=== PATIENT | female | born 1960 | race Caucasian/White ===

== ENCOUNTER 2016-10-14 16:05 | Observation (INO) | payer OTHER ==
[2016-10-14 16:41] LABS: Hematocrit 40 % (35-47); Hemoglobin 13.4 g/dl (12.0-16.0); Mean Corpuscular HGB Conc 34 g/dl (31-36); Mean Corpuscular Hemoglobin 30 pg (27-31); Mean Corpuscular Volume 88 fL (80-97); Mean Platelet Volume 8 um3 (7.4-10.4); Red Cell Distribution Width 14 % (10.5-15); White Blood Count 6.1 10^3/ul (3.5-10.8)
[2016-10-14 16:55] LABS: Troponin I 0.01 ng/mL (<0.04)
[2016-10-14 16:56] LABS: Albumin 4.6 g/dL (3.2-5.2); BUN/Creatinine Ratio 24.7 (8-20); Calcium 9.9 mg/dL (8.6-10.3); EGFR African American 105.3 (>60); EGFR Non-African American 81.9 (>60); Globulin 3.8 g/dL (2-4); Potassium 3.5 mmol/L (3.5-5.0); Total Bilirubin 0.5 mg/dL (0.2-1.0); Total Protein 8.4 g/dL (6.4-8.9)
--- NOTE | 2016-10-14 17:14 | RAD ---
INDICATION: Irregular heartbeat COMPARISON: Chest x-ray dated October 03, 2006 TECHNIQUE: Single AP portable view of the chest was obtained. FINDINGS: Image quality is compromised due to the relative inferiority of a portable chest x-ray. The heart and mediastinum exhibit normal size and contour. The lungs are grossly clear. There is no evidence of a large pleural effusion. Visualized bones are normal for the patient's age. IMPRESSION: No radiographic evidence for acute cardiopulmonary abnormality on this portable chest x-ray.
[2016-10-14 17:20] LABS: Urine Bilirubin Negative (Negative); Urine Glucose Negative (Negative); Urine Nitrite Negative (Negative)
[2016-10-14 17:28] LABS: TSH (Thyroid Stimulating Horm) 1.96 mcIU/mL (0.34-5.60)
--- NOTE | 2016-10-14 18:29 | ED ---
Ramirez Pickens Benjamin, scribed for Seven Thornton MD on 10/14/16 at 1647 . Palpitations / Dysrhythmia - HPI Summary HPI Summary: 56yo female reporting feeling of brain foggy and buzziness in her head. Pt states that she is unable to focus, and feels lots of pressure in her head. Pt also reports intermittent palpitations and high BP all throughout Friday. Pt has hx of afib and states that her HR is sometimes really fast and at other times really sow. Pt is not on a bloodthinner. Denies CP or SOB. - History of Current Complaint Chief Complaint: EDGeneral Time Seen by Provider: 10/14/16 16:22 Hx Obtained From: Patient Onset/Duration: Gradual Onset, Lasting Days Severity Initially: Mild Severity Currently: Mild Character: Irregular Aggravating: Nothing Alleviating: Nothing Associated Signs & Symptoms: Dizzy - Allergy/Home Medications Allergies/Adverse Reactions: Allergies Allergy/AdvReac Type Severity Reaction Status Date / Time Iodine Allergy Hives Verified 10/04/15 10:17 Mineral Oil Allergy Rash Verified 10/02/15 12:21 PMH/Surg Hx/FS Hx/Imm Hx Endocrine/Hematology History: Reports: Hx Thyroid Disease Cardiovascular History: Reports: Hx Hypertension - Cancer History Hx Chemotherapy: No Hx Radiation Therapy: No - Surgical History Surgery Procedure, Year, and Place: x 1 - Immunization History Date of Tetanus Vaccine: w/in last 10 years Date of Influenza Vaccine: no Infectious Disease History: No Infectious Disease History: Denies: History Other Infectious Disease, Traveled Outside the [place] in Last 30 Days - Family History Known Family History: Positive: Hypertension, Other - vasovagal response Negative: Cardiac Disease - Social History Occupation: Employed Full-time Lives: With Family Alcohol Use: None Substance Use Type: Reports: None Smoking Status (MU): Never Smoked Tobacco Review of Systems Constitutional: Negative Eyes: Negative ENT: Negative Positive: Palpitations Respiratory: Negative Gastrointestinal: Negative Genitourinary: Negative Musculoskeletal: Negative Skin: Negative Neurological: Other Psychological: Normal All Other Systems Reviewed And Are Negative: Yes Physical Exam - Summary Physical Exam Summary: VITAL SIGNS: Reviewed. GENERAL: Patient is a well developed and nourished female who is lying comfortable in the stretcher. Patient is not in any acute respiratory distress. HEAD AND FACE: No signs of trauma. No ecchymosis, hematomas or skull depressions. No sinus tenderness. EYES: PERRLA, EOMI x 2, No injected conjunctiva, no nystagmus. EARS: Hearing grossly intact. Ear canals and tympanic membranes are within normal limits. MOUTH: Oropharynx within normal limits. NECK: Supple, trachea is midline, no adenopathy, no JVD, no carotid bruit, no c- spine tenderness, neck with full ROM. CHEST: Symmetric, no tenderness at palpation LUNGS: Clear to auscultation bilaterally. No wheezing or crackles. CVS: Regular rate and rhythm, S1 and S2 present, no murmurs or gallops appreciated. ABDOMEN: Soft, non-tender. No signs of distention. No rebound no guarding, and no masses palpated. Bowel sounds are normal. EXTREMITIES: FROM in all major joints, no edema, no cyanosis or clubbing. NEURO: Alert and oriented x 3. No acute neurological deficits. Speech is normal and follows commands. SKIN: Dry and warm Triage Information Reviewed: Yes Vital Signs On Initial Exam: Initial Vitals Temp Pulse Resp BP Pulse Ox 97.6 F 84 20 179/85 100 10/14/16 16:07 10/14/16 16:07 10/14/16 16:07 10/14/16 16:07 10/14/16 16:07 Vital Signs Reviewed: Yes - [place] Coma Scale Coma Scale Total: 15 Diagnostics - Vital Signs Vital Signs Temp Pulse Resp BP Pulse Ox 10/14/16 16:07 97.6 F 84 20 179/85 100 - Laboratory Lab Results: Lab Results 10/14/16 10/14/16 10/14/16 Range/Units 16:25 16:25 16:25 WBC 6.1 (3.5-10.8) 10^3/ul RBC 4.50 (4.0-5.4) 10^6/ul Hgb 13.4 (12.0-16.0) g/dl Hct 40 (35-47) % MCV 88 (80-97) fL MCH 30 (27-31) pg MCHC 34 (31-36) g/dl RDW 14 (10.5-15) % Plt Count 243 (150-450) 10^3/ul MPV 8 (7.4-10.4) um3 Neut % (Auto) 57.2 (38-83) % Lymph % (Auto) 36.4 (25-47) % [place] % (Auto) 5.5 (1-9) % Eos % (Auto) 0.4 (0-6) % Baso % (Auto) 0.5 (0-2) % Absolute Neuts (auto) 3.5 (1.5-7.7) 10^3/ul Absolute Lymphs (auto) 2.2 (1.0-4.8) 10^3/ul Absolute Monos (auto) 0.3 (0-0.8) 10^3/ul Absolute Eos (auto) 0 (0-0.6) 10^3/ul Absolute Basos (auto) 0 (0-0.2) 10^3/ul Absolute Nucleated RBC 0 10^3/ul Nucleated RBC % 0 Sodium 137 (133-145) mmol/L Potassium 3.5 (3.5-5.0) mmol/L Chloride 99 L (101-111) mmol/L Carbon Dioxide 28 (22-32) mmol/L Anion Gap 10 (2-11) mmol/L BUN 18 (6-24) mg/dL Creatinine 0.73 (0.51-0.95) mg/dL Est GFR ( Amer) 105.3 (>60) Est GFR (Non-Af Amer) 81.9 (>60) BUN/Creatinine Ratio 24.7 H (8-20) Glucose 95 (70-100) mg/dL Lactic Acid 1.4 (0.5-2.0) mmol/L Calcium 9.9 (8.6-10.3) mg/dL Magnesium 2.0 (1.9-2.7) mg/dL Total Bilirubin 0.50 (0.2-1.0) mg/dL AST 22 (13-39) U/L ALT 21 (7-52) U/L Alkaline Phosphatase 118 H (34-104) U/L Total Creatine Kinase 111 (10-223) U/L CK-MB (CK-2) 2.3 (0.6-6.3) ng/mL Troponin I 0.01 (<0.04) ng/mL B-Natriuretic Peptide ( - 100) pg/mL Total Protein 8.4 (6.4-8.9) g/dL Albumin 4.6 (3.2-5.2) g/dL Globulin 3.8 (2-4) g/dL Albumin/Globulin Ratio 1.2 (1-3) TSH 1.96 (0.34-5.60) mcIU/mL Urine Color Urine Appearance Urine pH (5-9) Ur Specific [place] (1.010-1.030) Urine Protein (Negative) Urine Ketones (Negative) Urine Blood (Negative) Urine Nitrate (Negative) Urine Bilirubin (Negative) Urine Urobilinogen (Negative) Ur Leukocyte Esterase (Negative) Urine Glucose (Negative) 10/14/16 10/14/16 Range/Units 16:25 17:13 WBC (3.5-10.8) 10^3/ul RBC (4.0-5.4) 10^6/ul Hgb (12.0-16.0) g/dl Hct (35-47) % MCV (80-97) fL MCH (27-31) pg MCHC (31-36) g/dl RDW (10.5-15) % Plt Count (150-450) 10^3/ul MPV (7.4-10.4) um3 Neut % (Auto) (38-83) % Lymph % (Auto) (25-47) % [place] % (Auto) (1-9) % Eos % (Auto) (0-6) % Baso % (Auto) (0-2) % Absolute Neuts (auto) (1.5-7.7) 10^3/ul Absolute Lymphs (auto) (1.0-4.8) 10^3/ul Absolute Monos (auto) (0-0.8) 10^3/ul Absolute Eos (auto) (0-0.6) 10^3/ul Absolute Basos (auto) (0-0.2) 10^3/ul Absolute Nucleated RBC 10^3/ul Nucleated RBC % Sodium (133-145) mmol/L Potassium (3.5-5.0) mmol/L Chloride (101-111) mmol/L Carbon Dioxide (22-32) mmol/L Anion Gap (2-11) mmol/L BUN (6-24) mg/dL Creatinine (0.51-0.95) mg/dL Est GFR ( Amer) (>60) Est GFR (Non-Af Amer) (>60) BUN/Creatinine Ratio (8-20) Glucose (70-100) mg/dL Lactic Acid (0.5-2.0) mmol/L Calcium (8.6-10.3) mg/dL Magnesium (1.9-2.7) mg/dL Total Bilirubin (0.2-1.0) mg/dL AST (13-39) U/L ALT (7-52) U/L Alkaline Phosphatase (34-104) U/L Total Creatine Kinase (10-223) U/L CK-MB (CK-2) (0.6-6.3) ng/mL Troponin I (<0.04) ng/mL B-Natriuretic Peptide 37 ( - 100) pg/mL Total Protein (6.4-8.9) g/dL Albumin (3.2-5.2) g/dL Globulin (2-4) g/dL Albumin/Globulin Ratio (1-3) TSH (0.34-5.60) mcIU/mL Urine Color Straw Urine Appearance Clear Urine pH 6.0 (5-9) Ur Specific [place] 1.003 L (1.010-1.030) Urine Protein Negative (Negative) Urine Ketones Negative (Negative) Urine Blood Negative (Negative) Urine Nitrate Negative (Negative) Urine Bilirubin Negative (Negative) Urine Urobilinogen Negative (Negative) Ur Leukocyte Esterase Negative (Negative) Urine Glucose Negative (Negative) Result Diagrams: 10/14/16 16:25 10/14/16 16:25 Lab Statement: Any lab studies that have been ordered have been reviewed, and results considered in the medical decision making process. - Radiology CXR Xray Interpretation: No Acute Changes Radiology Interpretation Completed By: Radiologist - EKG 1618. Cardiac Rate: NL - 66bpm EKG Rhythm: Sinus Rhythm ST Segment: Normal - no ST Elevation Re-Evaluation - Re-Evaluation First Eval Re-Evaluation Time: 18:13 Change: Improved - feeling a lot better Course/Dx - Course Assessment/Plan: 56yo female reporting feeling of brain foggy and buzziness in her head. Pt states that she is unable to focus, and feels lots of pressure in her head. Pt also reports intermittent palpitations and high BP all throughout Friday. Pt has hx of afib and states that her HR is sometimes really fast and at other times really sow. Pt is not on a bloodthinner. Denies CP or SOB. Bloodwork WNL. UA is negative for UTI. CXR NAD. EKG shows normal sinus rhythm with 66bpm without ST elevation. In ED course, pt has been completely asymptomatic. However due to near syncopal episode, pt case was discussed with Dr. Holloway for admission who accepted the pt. Pt is hemodynamically stable and A&Ox3. - Diagnoses Differential Diagnosis/HQI/PQRI: Positive: Hypokalemia, V-Tach, Other - Atrial fib, arrythmia Provider Diagnoses: Near syncope, Arrhythmia Discharge - Discharge Plan Condition: Stable Disposition: ADMITTED TO [facility] The documentation as recorded by the Ramirez eisenberg Benjamin accurately reflects the service I personally performed and the decisions made by , Seven Thonrton MD.
[2016-10-14] MEDS: Losartan TAB* 25 MG PO SCH (21:22)
--- NOTE | 2016-10-15 00:42 | HP ---
HISTORY AND PHYSICAL: DATE OF ADMISSION: 10/14/16 PROVIDER: Maris Olmos NP ATTENDING PHYSICIAN: Dr. Cross *(report dictated by Maris Olmos NP). PRIMARY CARE PROVIDER: Dr. Mejía. VISITING PROFESSOR: Dr. Lara. CHIEF COMPLAINT: Palpitations and presyncope. HISTORY OF PRESENT ILLNESS: Ms. Osullivan is a 56-year-old female with a past medical history of hypertension, hypothyroidism, brief episode of AFib with rvr in early thought to be secondary to dental infections that resolved after infection was treated, and history of vasovagal syncope starting around that same time, who presents to the emergency department today with complaint of several days of palpitations and feeling like she was going to pass out. Ms. Osullivan reports she went and saw her primary care physician, Dr. Mejía, was noted to have elevated blood pressures systolically in the 170s and due to her story of presyncope, palpitations in which the patient reports as "missed beats and drop in heart rate," the patient was referred to the emergency department for further evaluation. In the emergency department, the patient was noted to have unremarkable labs and an EKG showing sinus rhythm at a rate of 66 with no acute ischemia noted. No prior EKGs to compare to. Ms. Osullivan reports approximately on Friday, she noted that her blood pressure was systolically in the 170s to 180s and could not figure out why. She was out with her daughter that day, noted that she has palpitations and that her heart rate went from 60 to 57 and felt like she was going to pass out. On Friday, she also reports some brain fog and fuzziness. She then reports over the last couple of days, she was continued to feel palpitations and have a sensation that she might pass out. Patient reports her last true syncopal episode was probably a couple of years ago. She reports her triggers to be loss of sleep, stress, dehydration. Today, in the emergency department, the patient is alert and oriented x3. She denies any recent illnesses. No fevers, chills, nasal congestion, cough, shortness of breath, abdominal pain, nausea, vomiting, or diarrhea. She denies any palpitations or presyncopal sensation while being monitored in the emergency department. In regards to the patients noted hypertension she was very concerned about, the patient reports that Friday evening, she ate [place] food and then noted her blood pressure to be systolically in the 170s to 180s the next morning. She then reports it resolved, then today she noted elevated blood pressure systolically in the 170s, but admits to being "very stressed." PAST MEDICAL HISTORY: 1. Hypertension. 2. Atrial fibrillation in 1990 or 1991, which resolved and followed up with an EP study, which was negative. 3. Hypothyroidism. 4. History of vasovagal syncope. HOME MEDICATIONS: 1. Cozaar 50 mg p.o. b.i.d. 2. Synthroid odd days 25 mcg p.o. daily, even days 50 mcg p.o. daily. 3. Aspirin 81 mg p.o. daily. 4. Vitamin D + Calcium 1 tab PO daily 5. [place] 3 fish oil FAMILY HISTORY: Reviewed, noncontributory. SOCIAL HISTORY: Denies history of tobacco abuse. No alcohol use. Denies recreational drug use. The patient currently lives with her at home, who is her healthcare proxy and is Giuliano Osullivan, his number is [phone]. She has two grown daughters. REVIEW OF SYSTEMS: A 14-point review of systems was performed. All the pertinent positives and negatives are mentioned in the history of present illness. All the remaining systems are negative. PHYSICAL EXAMINATION GENERAL APPEARANCE: A healthy-appearing, 56-year-old female, sitting up in the emergency department stretcher. Alert and oriented x3, in no acute distress. VITAL SIGNS: Temperature 97.6, heart rate 53, respirations 16, O2 sat 98% on room air, blood pressure 134/63. HEENT: Head is normocephalic, atraumatic. Pupils are equal and reactive to light. Oropharynx is clear. Moist mucous membranes. Good dentition. NECK: Supple. No cervical or supraclavicular lymphadenopathy. RESPIRATORY: Clear to auscultation bilaterally. Good aeration throughout. No accessory muscle use. CARDIAC: S1, S2. Regular rate and rhythm. No murmurs, rubs, or gallops appreciated. No lower extremity edema noted. 2+ DP pulses bilaterally. ABDOMEN: Soft, nontender, nondistended. Normal bowel sounds x4. MUSCULOSKELETAL: No clubbing or cyanosis noted. Full range of motion in all extremities. Strength is 5/5 throughout. NEURO: Cranial nerves II through XII are grossly intact. Moves all extremities equally. Sensation to lower extremities is intact to light touch. PSYCH: Alert and oriented x3. Appropriate to situation. SKIN: No rashes, lesions, or open wounds noted. Warm, pink, and dry. DIAGNOSTIC STUDIES/LAB DATA: WBC is 6.1, RBC 4.50, Hgb 13.4, Hct 40, MCV 88, MCH 30, MCHC 34, RDW 14, platelet count 243. Sodium 137, potassium 3.5, chloride 99, carbon dioxide 28, anion gap 10, BUN 18, creatinine 0.73, glucose 95, lactic acid 1.4, calcium 9.9, magnesium 2.0. AST 22, ALT 21, alkaline phosphatase 118. Total creatine kinase 111, CK-MB 2.3. Troponin 0.01. BNP 37. Total protein 8.4, albumin 4.6. TSH 1.96. Urinalysis negative. EKG: Sinus rhythm with rate of 66 with no acute ischemic changes noted. No prior EKG to compare to. X-ray: No radiographic evidence for acute cardiopulmonary abnormality. ASSESSMENT AND PLAN: Ms. Osullivan is a 56-year-old female with past medical history of hypertension, hypothyroidism, distant history of atrial fibrillation , and history of vasovagal syncope, who presents to the emergency room today with report of palpitations and presyncopal sensation. 1. Presyncope. Unclear etiology at this time. Plan to admit the patient to telemetry on observation for further monitoring. The patient's heart rate currently is in the 50s and 60s in the emergency department with no noted arrhythmias or missed beats Transthoracic echocardiogram in the morning. Obtain orthostatic vital signs. At this time, plan to continue the patient on her home medications and have her ambulate on telemetry to see how she tolerates these. 2. Hypertension. Continue home dose Cozaar. I suspect her high blood pressure Friday morning was secondary to high salt content of [place] food and today's episode at the her primary's office secondary to stress. We will continue to monitor the patient's blood pressure on her home medication. 3. Hypothyroidism. Continue Synthroid. TSH within normal limits. 4. DVT prophylaxis. Low risk, encourage ambulation. 5. Code status. Full code. The patient's is her healthcare proxy. 6. Disposition. OBV to telemetry. TIME SPENT: Approximately 60 minutes was spent on this admission. MARIS OLMOS NP CC: Dr. Mejía * [id number]/[facility] #: [id number] MTDD
[2016-10-15 05:50] LABS: Hematocrit 36 % (35-47); Hemoglobin 11.9 g/dl (12.0-16.0); Mean Corpuscular HGB Conc 33 g/dl (31-36); Mean Corpuscular Hemoglobin 30 pg (27-31); Mean Corpuscular Volume 89 fL (80-97); Mean Platelet Volume 8 um3 (7.4-10.4); Red Blood Count 4.03 10^6/ul (4.0-5.4); Red Cell Distribution Width 14 % (10.5-15); White Blood Count 5.7 10^3/ul (3.5-10.8)
[2016-10-15] MEDS ORDERED: Levothyroxine TAB* 25 MCG TAB PO ONE (06:00)
[2016-10-15 06:06] LABS: BUN/Creatinine Ratio 28.2 (8-20); Calcium 9.4 mg/dL (8.6-10.3); EGFR African American 108.7 (>60); EGFR Non-African American 84.6 (>60); Potassium 4.1 mmol/L (3.5-5.0)
[2016-10-15] MEDS: Losartan TAB* 25 MG PO SCH (08:57)
--- NOTE | 2016-10-15 09:31 | PN ---
Subjective Date of Service: 10/15/16 Interval History: Patient had one episode this morning while sitting up in bed where she felt "a pause then like I was going pass out" she reports it only lasted a couple seconds then resolved. No CP, SOB or dizziness. Otherwise feeling well. Objective Active Medications: Losartan Potassium (Cozaar Tab*) 50 mg PO BID KISHORE Last Admin: 10/15/16 08:57 Dose: 50 mg Vital Signs 10/14/16 10/14/16 10/14/16 18:30 18:37 19:00 Temperature Pulse Rate 66 65 58 Respiratory 19 22 13 Rate Blood Pressure 134/63 137/62 (mmHg) O2 Sat by Pulse 93 97 97 Oximetry 10/15/16 10/15/16 10/15/16 00:08 00:19 00:24 Temperature 98.6 F 98.3 F 98.1 F Pulse Rate 56 53 58 Respiratory 18 20 16 Rate Blood Pressure 164/83 108/58 137/80 (mmHg) O2 Sat by Pulse 99 93 100 Oximetry 10/15/16 10/15/16 10/15/16 00:52 00:53 03:59 Temperature 98.3 F 97.9 F Pulse Rate 58 78 46 Respiratory 16 Rate Blood Pressure 137/80 135/90 129/62 (mmHg) O2 Sat by Pulse 95 Oximetry 10/15/16 10/15/16 08:34 08:38 Temperature 97.8 F 97.5 F Pulse Rate 68 61 Respiratory 18 18 Rate Blood Pressure 127/64 125/80 (mmHg) O2 Sat by Pulse 100 97 Oximetry Oxygen Devices in Use Now: None Appearance: healthy appearing 56 yo female sitting up in bed in NAD. A+O x3 Eyes: No Scleral Icterus, PERRLA Ears/Nose/Mouth/Throat: NL Teeth, Lips, Gums, Mucous Membranes Moist Neck: NL Appearance and Movements; NL JVP Respiratory: Symmetrical Chest Expansion and Respiratory Effort, Clear to Auscultation Cardiovascular: NL Sounds; No Murmurs; No JVD, RRR, No Edema Abdominal: NL Sounds; No Tenderness; No Distention Extremities: No Edema, No Clubbing, Cyanosis Skin: No Rash or Ulcers, No Nodules or Sclerosis Neurological: Alert and Oriented x 3, NL Sensation, NL Gait, NL Muscle Strength and Tone Lines/Tubes/Other Access: Clean, Dry and Intact Peripheral IV Nutrition: Taking PO's Result Diagrams: 10/15/16 05:00 10/15/16 05:00 Additional Lab and Data: Lab Results 10/14/16 10/14/16 10/14/16 Range/Units 16:25 16:25 16:25 WBC 6.1 (3.5-10.8) 10^3/ul RBC 4.50 (4.0-5.4) 10^6/ul Hgb 13.4 (12.0-16.0) g/dl Hct 40 (35-47) % MCV 88 (80-97) fL MCH 30 (27-31) pg MCHC 34 (31-36) g/dl RDW 14 (10.5-15) % Plt Count 243 (150-450) 10^3/ul MPV 8 (7.4-10.4) um3 Neut % (Auto) 57.2 (38-83) % Lymph % (Auto) 36.4 (25-47) % [place] % (Auto) 5.5 (1-9) % Eos % (Auto) 0.4 (0-6) % Baso % (Auto) 0.5 (0-2) % Absolute Neuts (auto) 3.5 (1.5-7.7) 10^3/ul Absolute Lymphs (auto) 2.2 (1.0-4.8) 10^3/ul Absolute Monos (auto) 0.3 (0-0.8) 10^3/ul Absolute Eos (auto) 0 (0-0.6) 10^3/ul Absolute Basos (auto) 0 (0-0.2) 10^3/ul Absolute Nucleated RBC 0 10^3/ul Nucleated RBC % 0 Sodium 137 (133-145) mmol/L Potassium 3.5 (3.5-5.0) mmol/L Chloride 99 L (101-111) mmol/L Carbon Dioxide 28 (22-32) mmol/L Anion Gap 10 (2-11) mmol/L BUN 18 (6-24) mg/dL Creatinine 0.73 (0.51-0.95) mg/dL Est GFR ( Amer) 105.3 (>60) Est GFR (Non-Af Amer) 81.9 (>60) BUN/Creatinine Ratio 24.7 H (8-20) Glucose 95 (70-100) mg/dL Lactic Acid 1.4 (0.5-2.0) mmol/L Calcium 9.9 (8.6-10.3) mg/dL Magnesium 2.0 (1.9-2.7) mg/dL Total Bilirubin 0.50 (0.2-1.0) mg/dL AST 22 (13-39) U/L ALT 21 (7-52) U/L Alkaline Phosphatase 118 H (34-104) U/L Total Creatine Kinase 111 (10-223) U/L CK-MB (CK-2) 2.3 (0.6-6.3) ng/mL Troponin I 0.01 (<0.04) ng/mL B-Natriuretic Peptide ( - 100) pg/mL Total Protein 8.4 (6.4-8.9) g/dL Albumin 4.6 (3.2-5.2) g/dL Globulin 3.8 (2-4) g/dL Albumin/Globulin Ratio 1.2 (1-3) TSH 1.96 (0.34-5.60) mcIU/mL Urine Color Urine Appearance Urine pH (5-9) Ur Specific [place] (1.010-1.030) Urine Protein (Negative) Urine Ketones (Negative) Urine Blood (Negative) Urine Nitrate (Negative) Urine Bilirubin (Negative) Urine Urobilinogen (Negative) Ur Leukocyte Esterase (Negative) Urine Glucose (Negative) 10/14/16 10/14/16 Range/Units 16:25 17:13 WBC (3.5-10.8) 10^3/ul RBC (4.0-5.4) 10^6/ul Hgb (12.0-16.0) g/dl Hct (35-47) % MCV (80-97) fL MCH (27-31) pg MCHC (31-36) g/dl RDW (10.5-15) % Plt Count (150-450) 10^3/ul MPV (7.4-10.4) um3 Neut % (Auto) (38-83) % Lymph % (Auto) (25-47) % [place] % (Auto) (1-9) % Eos % (Auto) (0-6) % Baso % (Auto) (0-2) % Absolute Neuts (auto) (1.5-7.7) 10^3/ul Absolute Lymphs (auto) (1.0-4.8) 10^3/ul Absolute Monos (auto) (0-0.8) 10^3/ul Absolute Eos (auto) (0-0.6) 10^3/ul Absolute Basos (auto) (0-0.2) 10^3/ul Absolute Nucleated RBC 10^3/ul Nucleated RBC % Sodium (133-145) mmol/L Potassium (3.5-5.0) mmol/L Chloride (101-111) mmol/L Carbon Dioxide (22-32) mmol/L Anion Gap (2-11) mmol/L BUN (6-24) mg/dL Creatinine (0.51-0.95) mg/dL Est GFR ( Amer) (>60) Est GFR (Non-Af Amer) (>60) BUN/Creatinine Ratio (8-20) Glucose (70-100) mg/dL Lactic Acid (0.5-2.0) mmol/L Calcium (8.6-10.3) mg/dL Magnesium (1.9-2.7) mg/dL Total Bilirubin (0.2-1.0) mg/dL AST (13-39) U/L ALT (7-52) U/L Alkaline Phosphatase (34-104) U/L Total Creatine Kinase (10-223) U/L CK-MB (CK-2) (0.6-6.3) ng/mL Troponin I (<0.04) ng/mL B-Natriuretic Peptide 37 ( - 100) pg/mL Total Protein (6.4-8.9) g/dL Albumin (3.2-5.2) g/dL Globulin (2-4) g/dL Albumin/Globulin Ratio (1-3) TSH (0.34-5.60) mcIU/mL Urine Color Straw Urine Appearance Clear Urine pH 6.0 (5-9) Ur Specific [place] 1.003 L (1.010-1.030) Urine Protein Negative (Negative) Urine Ketones Negative (Negative) Urine Blood Negative (Negative) Urine Nitrate Negative (Negative) Urine Bilirubin Negative (Negative) Urine Urobilinogen Negative (Negative) Ur Leukocyte Esterase Negative (Negative) Urine Glucose Negative (Negative) Assess/Plan/Problems-Billing Assessment: Mrs. Osullivan is a 56 yo female with a PMH of distant afib with rvr, vasovagal syncope, HTN and hypothyroidism who presented with c/o presyncope and "missed heart beats". - Patient Problems (1) Pre-syncope Comment: - noted to have missed beats on tele (about 6-7 overnight) causing about a two second pause, she was symptomatic to one episode this morning that correlated to a pause - Dr Gould to consult. Check lyme titer. Plan to place event monitor today. TTE. follow up next week with Dr. Lara (2) HTN (hypertension) Comment: - controlled on home medication - continue cozzar (3) Hypothyroid Comment: TSH wnls continue home dose synthroid (4) DVT prophylaxis Comment: low risk. encourage ambulation (5) Full code status Current Visit: Yes Status: Acute Code(s): Z78.9 - OTHER SPECIFIED HEALTH STATUS SNOMED Code(s): 622458042 Status and Disposition: OBV. DC to home after event monitor is placed with f/u Dr. Lara next week.
[2016-10-15] MEDS ORDERED: Acetaminophen TAB* 325 MG PO PRN (12:12)
--- NOTE | 2016-10-15 12:52 | ECHO ---
Patient: JACQUES ARDON [facility] Rec#: [id number] : 1960 Date: 10/15/2016 Age: 56y Height: 167.64 cm / 66.0 in Weight: 68.49 kg / 151.0 lbs Sex: F BSA: 1.77 Room#: 439 Admit Date#: 10/14/2016 Type: Inpatient Referring: Maris Londono Reading: Edwin Madrigal MD Pole Lift Operator: Marianne Gaston TRISTEN CC: Traci Mejía MD Transthoracic Echocardiogram Indication: Syncope BP: 129/62 HR: 59 Rhythm: Bradycardia Findings History: HTN,hypothyroidism,vasa-vagal syncope in the past. Technical Comments: The study quality is good. Completed at 1220. Left Ventricle: The left ventricular chamber size is decreased. Global left ventricular wall motion and contractility are within normal limits. There is normal left ventricular systolic function. The estimated ejection fraction is 55-60%. Normal left ventricular diastolic filling is observed. Left Atrium: The left atrial chamber size is normal. Right Ventricle: The right ventricular cavity size is normal. The right ventricular global systolic function is normal. Right Atrium: The right atrial cavity size is normal. Aortic Valve: The aortic valve is trileaflet. There is no evidence of aortic regurgitation. There is no evidence of aortic stenosis. Mitral Valve: The mitral valve leaflets appear normal. There is no evidence of mitral regurgitation. There is no evidence of mitral stenosis. Tricuspid Valve: The tricuspid valve leaflets are normal. There is no evidence of tricuspid valve regurgitation. There is no tricuspid stenosis. Pulmonic Valve: The pulmonic valve appears normal. There is no evidence of pulmonic regurgitation. There is no pulmonic stenosis. Pericardium: The pericardium appears normal. Aorta: There is no dilatation of the ascending aorta. There is no dilatation of the aortic arch. There is no dilation of the aortic root. Pulmonary Artery: The main pulmonary artery appears normal. Venous: The inferior vena cava appears normal in size. There is a greater than 50% respiratory change in the inferior vena cava dimension. Conclusions Global left ventricular wall motion and contractility are within normal limits. The estimated ejection fraction is 55-60%. Normal left ventricular diastolic filling is observed. No valvular disease noted. Compared to the report of prior study from 08/31/2014 the trace mitral regurgitation and mild tricuspid regurgitation seen on the prior study is not noted on the current one. Measurements Name Value Normal Range RVIDd (AP) 2D 2.6 cm (0.9 - 2.6) RVDdMajor (2D) 2.8 cm (2.2 - 4.4) RAd ISD 4CH 4 cm (3.4 - 4.9) RA (A4C)W 2.5 cm (2.9 - 4.6) IVSd (2D) 0.9 cm (0.6 - 1) LVPWd (2D) 0.7 cm (0.6 - 1) LVIDd (2D) 3.5 cm (3.6 - 5.4) LVIDs (2D) 2.5 cm - LV FS (2D) 30 % (25 - 45) Aortic Annulus 1.6 cm (1.4 - 2.6) Ao root diameter (2D) 3.5 cm (2.1 - 3.5) Ascending Ao 3.2 cm (2.1 - 3.4) Aortic arch 1.9 cm (1.8 - 3.4) Descending Ao 0.8 cm - LA dimension (AP) 2D 2.9 cm (2.3 - 3.8) LAd ISD 4CH 3.9 cm (2.9 - 5.3) LA ISD 4CH W 3.8 cm (2.5 - 4.5) Name Value Normal Range LA ESV SP 4CH (A/L) 44 ml - LA ESV SP 2CH (A/L) 33 ml - LA ESV BP (A/L) 39 ml - LA ESV BP (A/L) index 21.72 ml/m2 - LA ESV SP 4CH (MOD) 38 ml - LA ESV SP 2CH (MOD) 31 ml - Name Value Normal Range MV E-wave Vmax 1.1 m/sec - MV deceleration time 205 msec - MV A-wave Vmax 0.9 m/sec - MV E:A ratio 1.11 ratio - LV septal e' Vmax 0.09 m/sec - LV lateral e' Vmax 0.11 m/sec - LV E:e' septal ratio 12.22 ratio - LV E:e' lateral ratio 10 ratio - Name Value Normal Range AV Vmax 1.6 m/sec - AV VTI 31.9 cm - AV peak gradient 10.26 mmHg - AV mean gradient 4.74 mmHg - LVOT Vmax 1.4 m/sec - LVOT VTI 30 cm - LVOT peak gradient 8.22 mmHg - LVOT mean gradient 3.21 mmHg - Name Value Normal Range IVC diameter 1.6 cm - Name Value Normal Range PV Vmax 1.1 m/sec - PV peak gradient 4.44 mmHg -
[2016-10-15] MEDS ORDERED: Cephalexin CAP* 500 MG PO ONE (14:30)
[2016-10-15] MEDS ORDERED: Lidocaine 1% INJ* 10 MG/ML 30 ML SDV ONE (14:40)
[2016-10-15 14:59] VITALS: BP 139/79
--- NOTE | 2016-10-15 16:21 | CONS ---
CARDIOLOGY CONSULTATION: DATE OF CONSULT: 10/15/16 INDICATION FOR CONSULTATION: Near syncope, hypertension. HISTORY OF PRESENT ILLNESS: The patient is a 56-year-old female with a distant history of atrial fibrillation, who came to the emergency room because of elevated blood pressure and episodes of near syncope. The patient states that over the last couple of months, she has had a few episodes where she has felt like she was going to pass out, but did not actually pass out. The patient does have a history of neurocardiogenic syncope. She has had electrophysiology testing in the past. The patient states that she has noticed that her blood pressure was elevated for the past day or so. She did call Dr. Lara's office and was scheduled for an office visit. However, she had a couple of episodes of near syncope and decided to come to the emergency room. On arrival to the emergency room, her laboratory studies were unremarkable and her EKG was unremarkable, and she was admitted overnight for observation. Overnight, she had a few episodes of feeling lightheaded, but did not have any true syncopal episodes. Her green chain operator shows episodes of normal sinus rhythm at 58 beats per minute with episodes of non-conducted P-waves. These P-waves do not fall as early premature atrial contractions and there is no evidence of VA prolongation or VA shortening after the dropped beat. This looks consistent with second-degree heart block type 2. PAST MEDICAL HISTORY: Significant for hypertension, neurocardiogenic syncope. PAST SURGICAL HISTORY: None. OUTPATIENT MEDICATIONS: 1. Cozaar 50 mg a day. 2. Vitamin D. 3. Vitamin C. ALLERGIES: She is intolerant of INDERAL. SOCIAL HISTORY: She is . She has 1 daughter. She denies tobacco or alcohol use. She drinks 1 cup of coffee a day. Rare exercise. REVIEW OF SYSTEMS: Negative for fevers or chills. Negative for changes in bowel or bladder habit. Negative for weight change. PHYSICAL EXAM: Height is 5 feet 6 inches, weight is 151 pounds. Blood pressure of 127/64, temperature 97.8 degrees Fahrenheit, heart rate is 68, oxygen saturation 97% on room air. Sclerae anicteric. Oropharynx is pink without erythema. Carotids are 2+ without bruits. JVD is normal. Thyroid is normal. Cardiac Exam: S1, S2 without any murmurs, rubs or gallops. Lungs are clear to auscultation bilaterally. There is no dullness to percussion. Abdomen is soft, nontender, nondistended with normoactive bowel sounds. Extremities show no edema. She has 2+ pulses throughout. The patient is awake , alert, and oriented. She moves all 4 extremities equally. DIAGNOSTIC STUDIES/LAB DATA: CBC within normal limits. Chemistry is within normal limits. TSH 1.96. Lyme titers are pending. Baseline EKG demonstrates normal sinus rhythm with normal axis intervals. The patient did have an echocardiogram in August 2014, which demonstrated normal LV size and systolic function. No significant valvular abnormalities. IMPRESSION: This is a 56-year-old female who came to the hospital because of episodes of near syncope and hypertension. The patient's history of hypertension is longstanding. The patient is on Cozaar. At this point, I am not going to make any medication changes. That can be arranged as an outpatient. The patient does have these episodes of near syncope. She does have documented dropped P-waves that are consistent with second-degree heart block type 2. For now, my recommendation is to evaluate Lyme titers. The patient will be scheduled for an event monitor implantation, so that we can monitor her heart rate at home. The patient will follow up with Dr. Lara. The patient may benefit from an electrophysiology testing to evaluate her AV node conduction. At this point, I do not think any other medication changes are necessary. CC: Lali Lara MD; Traci Mejía MD* [id number]/[facility] #: [id number] MTDD
--- NOTE | 2016-10-15 23:27 | CARD ---
CC: Dr. Mejía; Dr. Lara EVENT MONITOR IMPLANTATION REPORT: DATE OF PROCEDURE: 10/15/16 PROCEDURE: Event monitor implantation. INDICATION: Near syncope, second degree heart block. The patient is a 56-year-old female with a history of neurocardiogenic syncope [facility]. On telemetry, she had evidence of second degree heart b lock type 2, she had nonconducting P-waves. Event monitor implantation was recommended for long-ter m arrhythmia monitoring. DESCRIPTION OF PROCEDURE: The patient was brought to the procedure room. Her anterior chest was pr epped and draped in the usual fashion. 1% lidocaine was used for local anesthesia. The patient rec eived 500 mg of Keflex before the procedure. A small incision was made with the implantation tool, a n event monitor was injected subcutaneously. The event monitor is a [employer] Reveal LINQ serial #[id number]. It had an R-wave sensitivity of 0.53 millivolts. The patient tolerated the procedure wel l with no complications. [id number]/[facility] #: [id number]
--- NOTE | 2016-10-16 02:32 | DS ---
DISCHARGE SUMMARY: DATE OF ADMISSION: 10/14/16 DATE OF DISCHARGE: 10/15/16 PROVIDER: Lisa Olmos NP ATTENDING PHYSICIAN: Dr. Manzano* (report dictated by Lisa Olmos NP). PRIMARY CARE PROVIDER: Dr. Mejía. CHEMIST STEROIDS: Dr. Lara. PRIMARY DIAGNOSIS: Presyncope with noted arrhythmia on the monitor showing 2- second pauses. SECONDARY DIAGNOSES: 1. Hypertension. 2. Distant history of atrial fibrillation in early , which resolved and was followed with the EP study, which was negative. 3. Hypothyroidism. 4. History of vasovagal syncope. HOME MEDICATIONS: 1. Cozaar 50 mg p.o. b.i.d. 2. Synthroid odd days 25 mcg p.o. every other day, even days 50 mcg p.o. every other day. 3. Aspirin 81 mg p.o. daily. 4. Vitamin D plus calcium 1 tab p.o. daily. 5. [place]odi 3 fish oil 1 tab p.o. daily. HISTORY OF PRESENT ILLNESS AND HOSPITAL COURSE: Please see history and physical by this provider for full admission details. SUMMARY: This is a 56-year-old female who presented to emergency department with complaint of palpitations and presyncopal sensation. She reports over the course of the past 3 days, she has had intermittent sensation like she was going to pass out with noted palpitations or as she described "missed beats and a drop in heart rate." She reports that she has had this intermittently throughout the years, but has become more frequent in the last 3 days. In the emergency department, the patient is noted to have an EKG showing normal sinus rhythm with a rate of 66. She was admitted to the hospitalist service and monitored on telemetry where she was identified to have 6 or 7 of pauses about 2 seconds showing a dropped beat. The patient was asymptomatic. To most of these except one this morning when she was sitting up in the bed reading a book , she all of a sudden felt like she was going to pass out, noted "missed heart beat" and that resolved and she felt back to her normal baseline. She remained hemodynamically stable. Her orthostatics were obtained, which were negative. The patient was seen in consultation by supervisor records change, Dr. Gould, who reviewed the patient's cardiac strips and determined that the patient would benefit from a placement of an event monitor. The patient follows with Dr. Lara as an outpatient and will follow up next week in her office. The patient has ambulated around the unit without difficulty and has had no further symptoms except the one episode this morning. She is safe for discharged to home. She underwent a transthoracic echocardiogram, which showed impression "global left ventricular wall motion contractility within normal limits." The estimated ejection fraction is 55% to 60%. Normal left ventricular diastolic filling is observed. No valvular disease. Compared to the report of prior study from 08/11/14, the trace mitral regurgitation, mild tricuspid regurgitation seen on the prior study is not noted on the current one." DISCHARGE PLAN: 1. The patient is instructed to call Dr. Lara's office tomorrow for a followup appointment next week for event monitor placement insertion site check. 2. Follow up with Dr. Green within 3 to 5 days. 3. The patient was instructed if she has any worsening symptoms to return to the emergency department. TIME SPENT: Approximately 45 minutes were spent on this discharge. LISA OLMOS NP CC: Dr. Mejía; Dr. Lara* [id number]/[facility] #: [id number] MARCUS
== END 2016-10-15 15:30 | disposition home or self-care (01) ==
LOC: ED 16:05 → MEDTELE 18:02
PROVIDERS: ADMIT Internal Medicine; ATTEND Internal Medicine
DX: R55 Syncope and collapse (principal); I49.9 Cardiac arrhythmia, unspecified; I10 Essential (primary) hypertension; E03.9 Hypothyroidism, unspecified; I51.7 Cardiomegaly; I44.1 Atrioventricular block, second degree; Z79.82 Long term (current) use of aspirin; Z79.899 Other long term (current) drug therapy; Z88.8 Allergy status to other drugs, medicaments and biological substances
CPT/HCPCS: 33282; 36415; 71010; 80048; 80053; 81003; 82550; 82553; 83605; 83735; 83880; 84443; 84484; 85025; 86618; 93005; 93306; 99283; A9270-GY; C1764; G0378; J2001

== ENCOUNTER 2016-12-19 08:02 | Observation (INO) | payer OTHER ==
[2016-12-19] MEDS ORDERED: ceFAZolin 2 GM PREMIX(*) 2 GM/50 ML BAG IVPB ONE (08:30)
[2016-12-19 08:39] LABS: Hematocrit 38 % (35-47); Hemoglobin 12.3 g/dl (12.0-16.0); Mean Corpuscular HGB Conc 33 g/dl (31-36); Mean Corpuscular Hemoglobin 29 pg (27-31); Mean Corpuscular Volume 88 fL (80-97); Mean Platelet Volume 8 um3 (7.4-10.4); Red Blood Count 4.26 10^6/ul (4.0-5.4); Red Cell Distribution Width 14 % (10.5-15); White Blood Count 7.1 10^3/ul (3.5-10.8)
[2016-12-19 08:52] LABS: BUN/Creatinine Ratio 25.7 (8-20); Calcium 9.2 mg/dL (8.6-10.3); EGFR African American 103.7 (>60); EGFR Non-African American 80.6 (>60); Potassium 3.9 mmol/L (3.5-5.0)
[2016-12-19] MEDS ORDERED: diPHENhydraMINE IV* 50 MG in NS 0.9% 50 ML* 50 ML IVPB ONE (09:26)
[2016-12-19] MEDS ORDERED: diPHENhydraMINE IV* 50 MG/ML 1 ml VIAL (BENADRYL) ONE (09:33)
[2016-12-19] MEDS ORDERED: Lidocaine 1% INJ* 10 MG/ML 30 ML SDV ONE (09:45)
[2016-12-19] MEDS ORDERED: Iohexol 300 (CONTRAST) 10 ML SDV ONE (09:45)
[2016-12-19] MEDS ORDERED: Midazolam* 1 MG/ML 5 ML VIAL (5 MG) ONE (09:45)
[2016-12-19] MEDS ORDERED: fentaNYL* 50 MCG/ML 2 ML VIAL (100 MCG VIAL) ONE (09:45)
[2016-12-19] MEDS ORDERED: oxyCODONE/Acetamin 5/325 MG* TAB PO PRN (11:32)
--- NOTE | 2016-12-19 14:49 | RAD ---
INDICATION: Status post pacemaker placement. COMPARISON: Comparison is made with a prior study from October 14, 2016. TECHNIQUE: A portable view of the chest was obtained. FINDINGS: There is a dual-chamber transvenous pacemaker present. The heart is within normal limits in size. The lungs are clear. No pleural effusion or pneumothorax is seen. IMPRESSION: STATUS POST PACEMAKER PLACEMENT, NO EVIDENCE FOR ACUTE FINDING.
[2016-12-19] MEDS: Acetaminophen TAB* 325 MG PO PRN ×2 (15:35→20:06)
[2016-12-19] MEDS: ceFAZolin 500 MG VIAL(*) 500 MG in NS 0.9% 50 ML* 50 ML IVPB SCH ×2 (16:09→22:57)
[2016-12-19] MEDS: Gabapentin CAP(*) 100 MG PO SCH ×2 (16:09→20:04)
[2016-12-19] MEDS: Losartan TAB* 25 MG PO SCH (20:06)
[2016-12-20] MEDS ORDERED: Levothyroxine TAB* 25 MCG TAB PO SCH (06:00)
[2016-12-20 06:47] LABS: EGFR African American 110.5 (>60); EGFR Non-African American 85.9 (>60); Magnesium 1.9 mg/dL (1.9-2.7)
[2016-12-20 07:24] VITALS: BP 128/73
[2016-12-20] MEDS: Gabapentin CAP(*) 100 MG PO SCH (07:31)
[2016-12-20] MEDS: ceFAZolin 500 MG VIAL(*) 500 MG in NS 0.9% 50 ML* 50 ML IVPB SCH (07:32)
[2016-12-20] MEDS: Losartan TAB* 25 MG PO SCH (08:26)
[2016-12-20] MEDS: Acetaminophen TAB* 325 MG PO PRN (08:48)
--- NOTE | 2016-12-20 09:24 | RAD ---
INDICATION: Device implant COMPARISON: December 19, 2016 TECHNIQUE: PA and lateral dual-energy views were obtained. FINDINGS: Bones/Soft Tissues: There are no acute bony findings. There is recent left-sided pacemaker pacemaker Cardiomediastinal: The cardiomediastinal silhouette is normal. There is no vascular congestion. Lungs: There are no infiltrates. There is no pneumothorax. Pleura: There are no pleural effusions. Other: None IMPRESSION: RECENT PACEMAKER INSERTION. NO PNEUMOTHORAX. LUNGS CLEAR.
--- NOTE | 2016-12-20 09:39 | DS ---
DISCHARGE SUMMARY: DATE OF ADMISSION: 12/19/16 DATE OF DISCHARGE: 12/20/16 HISTORY OF PRESENT ILLNESS: Ana Osullivan is a 56-year-old woman with syncopal episodes; in the past she was treated for neurocardiogenic syncope with metoprolol. Relatively recently, this had to be stopped because of symptomatic bradycardia. And she had an event monitor put in recently to evaluate for possible dysrhythmias related to syncope. Her LINQ implantable event monitor revealed second-degree heart block type 1 followed by SVT when she was symptomatic. But, then on December 09, she developed 8 seconds of complete heart block associated with her symptoms of near syncope and the sensation that something was very wrong; it's always transient. The patient was admitted for elective dual-chamber pacemaker implantation. The patient had an MRI-compatible Medtronic device implanted yesterday, 12/19/16 , without complications. Overnight, the patient felt well. She did have some palpitations; and, on the monitor, there was initial concern about ventricular tachycardia with sleep. However, by my personal review, it is supraventricular tachycardia being tracked with ventricular pacing. The patient denies fevers, chills, or shortness of breath. She has only minimal tenderness at the site. PAST MEDICAL HISTORY: The patient has a past medical history of neurocardiogenic syncope, third-degree heart block as above, supraventricular tachycardia, hypertension, dyslipidemia. ALLERGIES: Include AMLODIPINE, IODINE, MINERAL OIL, PROPRANOLOL. OUTPATIENT MEDICATIONS: Include: 1. Levothyroxine 25 mcg a day. 2. Calcium and vitamin D3. 3. Neurontin p.r.n. 4. Flax seed oil. 5. Cozaar 50 mg b.i.d. 6. Multi-Will. HOSPITAL COURSE: The patient underwent implantation as above without complications. Brief episodes of supraventricular tachycardia with ventricular tracking. She is ambulating well. PHYSICAL EXAMINATION: On exam, the patient is 5 feet 4 inches, weight is 149 pounds with a BMI of 26. Blood pressure this morning 128/73, pulse 60, respiratory rate 16. She is afebrile. General Appearance: Older middle-aged woman in no acute distress, smiling, upbeat. HEENT: Mucous membranes moist. Neck: Without increased JVP. Lungs are clear with good effort. No wheezes, rales, or rhonchi. Coronary: S1, S2. Regular without murmurs or rubs. Incision in the left subclavian fossa appears free of infection, hematoma, or ecchymosis. Nominal site tenderness. Abdomen: Soft and nontender. Lower Extremities: Free of edema and warm. The upper extremities are symmetrical and without edema. IMAGING: Chest x-ray shows good lead placement, and no pneumothorax yesterday and today. Pacemaker interrogation today confirms she has a [employer]onic MRI-compatible Advisa DR. This morning, her atrial sensing was 1.4 millivolts with an atrial lead impedance of 399 ohms and and atrial paced rhythm of 0.75 volts at 0.4 milliseconds. R-waves are sensed at 5.5 millivolts with a lead impedance of 1216 ohms and a ventricular pacing threshold of 1.25 volts at 0.4 milliseconds. The ventricular pacing threshold is slightly increased compared with implant. LABORATORY DATA: White count 7.1, hemoglobin 12.3, platelets 198. INR 1.06, PTT 32.1. Labs today - sodium 138, potassium 4.0, chloride 104, bicarb 26, BUN 14, creatinine 0.7, magnesium 1.9. SUMMARY: In summary, Ana Osullivan is a 56-year-old woman with syncopal and near - syncopal episodes that have escalated recently and a history of autonomic dysfunction with evidence of 8 seconds of third-degree heart block. She is now postop day #1 dual-chamber pacemaker implantation. She had some SVT overnight. I am going to add her metoprolol back at low dose 25 mg. Additionally, she will go home with Keflex 500 mg t.i.d. for 4 days, and she will be discharged additionally with her home medications as above. The patient will follow up in our office in one week for a wound check. Wound care was discussed personally with the patient, and she will be provided with written instructions as well. CC: Dr. Traci Mejía* [id number]/[facility] #: [id number] MARCUS
--- NOTE | 2016-12-20 09:48 | OP ---
DATE OF OPERATION: 12/19/16 - ROOM #442 DATE OF : 56 SURGEON: Lali Lara MD. ANESTHESIA: MAC. PRE-OP DIAGNOSIS: Syncope with third-degree heart block. POST-OP DIAGNOSIS: Syncope with third-degree heart block. OPERATIVE PROCEDURE: Dual-chamber pacemaker implantation. ESTIMATED BLOOD LOSS: Less than 5 cc. COMPLICATIONS: None. DESCRIPTION OF PROCEDURE: The patient is right handed, and the left subclavian fossa was prepped and draped in the usual sterile fashion. The indications, risks and benefits had been discussed with the patient and her family in the office and at the bedside prior to being taken to the operating room, and all were amenable to proceeding. A timeout was called. Following this, the patient received 10 cc of radiopaque dye in the left upper extremity to outline the left axillary and left subclavian veins. Following this, the patient received a total of 20 mg of 1% lidocaine in the left subclavian fossa for local anesthesia. Following this, using a 10-blade knife, a 2.5 cm incision was made in the left subclavian fossa and using Bovie and blunt dissection was extended to level of the pectoralis muscle. Lidocaine was infused inferiorly and medially, and using blunt dissection a small pocket was fashioned. Using a modified Seldinger technique, the left subclavian vein was cannulated and a guidewire inserted using fluoro-scopic guidance. A second guidewire was inserted using the same technique. Using an introducer technique, the right ventricular lead was guided to the right ventricular apex and actively fixed in place. Using the second guidewire and introducer technique, the right atrial lead was then guided in the right atrial appendage and actively fixed in place. Pacing and sensing thresholds had been checked on both leads and were found to be good. The leads were then sutured to the pocket using 0 silk suture. The pocket was copiously irrigated and examined for hemostasis, which was good. The leads were then attached to the generator, the generator was placed in the pocket, and the incision was closed using two layers of resorbable suture, 2-0 followed by 4-0, followed by michelle and an external dressing. FINDINGS: The system is an MRI compatible system. The device is a [employer]a DR MRI SureScan model A2DR01, serial number [id number]. The atrial lead is a Medtronic 5076-45, serial number [id number] with P-waves sensed at 1.1 millivolt and atrial lead impedance of 497 ohms and an atrial pacing threshold of 1.7 V at 0.5 milliseconds. The ventricular lead is a Medtronic model 5076- 520 number [id number] with R-waves sensed at 8.9 mV and ventricular lead impedance of 1339 ohms and a ventricular pacing threshold of 0.4 V at 0.5 milliseconds. Overnight, the patient was programmed in dual-chamber or DDD mode with a low rate of 60 beats a minute. Again, the patient was hemodynamically stable throughout the procedure and on transfer to the floor. No complications. CC: Dr. Traci Mejía* [id number]/[facility] #: [id number] MARCUS
== END 2016-12-20 11:50 | disposition home or self-care (01) ==
LOC: CHICATH 08:02 → MEDTELE 11:54
PROVIDERS: ADMIT Specialist; ATTEND Specialist
DX: R55 Syncope and collapse (principal); I47.1 Supraventricular tachycardia; R42 Dizziness and giddiness; R00.2 Palpitations; I10 Essential (primary) hypertension; E78.5 Hyperlipidemia, unspecified; G90.4 Autonomic dysreflexia; Z79.899 Other long term (current) drug therapy; Z88.8 Allergy status to other drugs, medicaments and biological substances
CPT/HCPCS: 33208; 36415; 71010; 71020; 80048; 83735; 85025; 85610; 85730; 93005; A9270-GY; C1785; C1898; G0378; J0690; J1200; J2001; J2250; J3010; Q9967

== ENCOUNTER → 2016-12-30 10:44 | Emergency (ER) | payer OTHER ==
[~2016-12-30 10:44] MED LIST: Aspirin Low Dose CHEW TAB* 81 MG PO ONE; Ketorolac INJ* 30 MG/ML 1 ML VIAL IV PUSH ONE
--- NOTE | 2016-12-30 12:23 | RAD ---
INDICATION: Chest pain COMPARISON: Chest x-ray December 20, 2016 TECHNIQUE: An AP portable view obtained at 1210 hours is submitted. FINDINGS: Bones/Soft Tissues: There are no acute bony findings. There is a left-sided cardiac pacemaker. There is a cardiac event monitor. Cardiomediastinal: The cardiomediastinal silhouette is normal. Lungs: There are no infiltrates. Pleura: There are no pleural effusions. Other: None IMPRESSION: ] CARDIAC PACEMAKER. NO ACTIVE DISEASE.
[2016-12-30 13:01] LABS: Hematocrit 35 % (35-47); Hemoglobin 11.8 g/dl (12.0-16.0); Mean Corpuscular HGB Conc 34 g/dl (31-36); Mean Corpuscular Hemoglobin 30 pg (27-31); Mean Corpuscular Volume 88 fL (80-97); Mean Platelet Volume 8 um3 (7.4-10.4); Red Blood Count 3.97 10^6/ul (4.0-5.4); Red Cell Distribution Width 14 % (10.5-15); White Blood Count 6.6 10^3/ul (3.5-10.8)
[2016-12-30 13:17] LABS: Albumin 3.8 g/dL (3.2-5.2); BUN/Creatinine Ratio 25.8 (8-20); Calcium 8.9 mg/dL (8.6-10.3); EGFR African American 127.1 (>60); EGFR Non-African American 98.9 (>60); Magnesium 1.9 mg/dL (1.9-2.7); Potassium 4.3 mmol/L (3.5-5.0); Total Bilirubin 0.4 mg/dL (0.2-1.0); Total Protein 6.8 g/dL (6.4-8.9)
[2016-12-30 13:47] LABS: T4 9.98 mcg/mL (6.09-12.23); TSH (Thyroid Stimulating Horm) 1.2 mcIU/mL (0.34-5.60)
--- NOTE | 2016-12-30 16:20 | RAD ---
INDICATION: Mildly elevated d-dimer. Chest pain. Short of breath. COMPARISON: Chest x-ray December 30, 2016 TECHNIQUE: Following the administration of 14.3 millicuries of xenon gas, anterior and posterior deep breath, equilibrium, and washout phase imaging was performed. Following the intravenous administration of 6.5 millicuries of technetium 99m, MAA, anterior, posterior, lateral, and oblique imaging of the chest was performed. FINDINGS: Ventilation images show normal ventilation. The perfusion images show no segmentally absent areas of ventilation/perfusion mismatch. The probability of acute pulmonary embolus is low. IMPRESSION: LOW PROBABILITY FOR ACUTE PULMONARY EMBOLUS.
[2016-12-30 18:03] VITALS: BP 112/44
--- NOTE | 2016-12-31 19:27 | ED ---
Jomar Pickens Anna, scribed for Seven Thornton MD on 12/30/16 at 1249 . HPI Chest Pain - HPI Summary HPI Summary: Patient is a 56 y/o female coming to [facility] presenting with CP upon exertion that began at 0800 this morning. The pain is a burning pain of severity 6/10. The pain radiates to her neck. At rest, the pain is largely alleviated. The pain is exacerbated by deep breathing and movement. Denies nausea, emesis, diaphoresis, syncope. The patient had a pacemaker inserted [address] Lara after the patient was found to have an arrhythmia, a third degree heart block, and bradycardia. Patient medications were reviewed on this visit. - History of Current Complaint Chief Complaint: EDChestPainROMI Time Seen by Provider: 12/30/16 11:53 Hx Obtained From: Patient, Family/Diabetes Specialist Pain Intensity: 6 Pain Scale Used: 0-10 Numeric - Additional Pertinent History Primary Care Physician: [id number] - Allergy/Home Medications Allergies/Adverse Reactions: Allergies Allergy/AdvReac Type Severity Reaction Status Date / Time Amlodipine Allergy Unknown Verified 12/30/16 10:46 Reaction Details Iodine Allergy Hives Verified 12/30/16 10:46 Mineral Oil Allergy Rash Verified 12/30/16 10:46 Propranolol [From Inderal] Allergy Unknown Verified 12/30/16 10:46 Reaction Details Home Medications: Home Medications Bumetanide TAB* [Bumex 2 MG TAB*] 2 mg PO BEDTIME 12/30/16 [History Confirmed ] Bumetanide [Bumex 1 MG TAB] 1 mg PO DAILY 12/30/16 [History Confirmed 12/30/16] Citalopram TAB* [CeleXA TAB*] 20 mg PO DAILY 12/30/16 [History Confirmed ] Diltiazem HCl [Dilt-Xr] 120 mg PO BEDTIME 12/30/16 [History Confirmed 12/30/16] Dulera 200/5 MDI* 1 puff INH QAM 12/30/16 [History Confirmed 12/30/16] Ferrous Sulfate [Fe Tabs] 325 mg PO DAILY 12/30/16 [History Confirmed 12/30/16] Formoterol 20 MCG/2ML NEB (NF) [Perforomist NEB.SOLN*(NF)] 1 inh INH DAILY 12/30 [History Confirmed 12/30/16] Glipizide [Glipizide ER] 2.5 mg PO DAILY 12/30/16 [History Confirmed 12/30/16] Klonopin TAB(*) 1 mg PO QAM 12/30/16 [History Confirmed 12/30/16] Levalbuterol HFA INHALER* [Xopenex Hfa Inhaler*] 1 puff INH Q4H PRN 12/30/16 [ History Confirmed 12/30/16] Metformin HCl [Metformin HCl ER] 500 mg PO BID 12/30/16 [History Confirmed 12/30] Peg [id number] Bicarb-Sod Ch [Colyte-Flavor Packs] 2 jay PO DAILY 12/30/16 [ History Confirmed 12/30/16] Prilosec CAP* 20 MG 20 mg PO BEDTIME 12/30/16 [History Confirmed 12/30/16] Rivaroxaban TAB(*) [Xarelto 20 mg] 20 mg PO DAILY WITH MEAL 12/30/16 [History Confirmed 12/30/16] Simvastatin TAB(NF) [Zocor(NF)] 20 mg PO 1700 12/30/16 [History Confirmed ] Spironolactone (NF) [Spironolactone 50 MG (NF)] 50 mg PO DAILY 12/30/16 [ History Confirmed 12/30/16] Tiotropium CAP.INH* [Spiriva CAP.INH*] 1 cap.inh INH DAILY 12/30/16 [History Confirmed 12/30/16] predniSONE TAB* [Deltasone TAB*] 10 mg PO DAILY 12/30/16 [History Confirmed ] traZODone TAB* [Desyrel TAB*] 100 mg PO BEDTIME 12/30/16 [History Confirmed ] PMH/Surg Hx/FS Hx/Imm Hx Endocrine/Hematology History: Reports: Hx Thyroid Disease Cardiovascular History: Reports: Hx Atrial Fibrillation, Hx Hypertension, Hx Pacemaker/ICD, Other Cardiovascular Problems/Disorders - bradycardia, third degree blockage Sensory History: Reports: Hx Contacts or Glasses Denies: Hx Hearing Aid Opthamlomology History: Reports: Hx Contacts or Glasses Neurological History: Reports: Other Neuro Impairments/Disorders - vago- depressor syncope - Cancer History Hx Chemotherapy: No Hx Radiation Therapy: No - Surgical History Surgery Procedure, Year, and Place: x 1, oral surgery Hx Anesthesia Reactions: No - Immunization History Date of Tetanus Vaccine: up to date Date of Influenza Vaccine: 2014 Infectious Disease History: No Infectious Disease History: Denies: History Other Infectious Disease, Traveled Outside the [place] in Last 30 Days - Family History Known Family History: Positive: Hypertension, Other - vasovagal response Negative: Cardiac Disease - Social History Alcohol Use: Rare Substance Use Type: Reports: None Smoking Status (MU): Never Smoked Tobacco Review of Systems Negative: Skin Diaphoresis Positive: Chest Pain Negative: Vomiting, Nausea Negative: Syncope All Other Systems Reviewed And Are Negative: Yes Physical Exam - Summary Physical Exam Summary: VITAL SIGNS: Reviewed. GENERAL: Patient is a well-developed and nourished female who is lying comfortable in the stretcher. Patient is not in any acute respiratory distress. HEAD AND FACE: No signs of trauma. No ecchymosis, hematomas or skull depressions. No sinus tenderness. EYES: PERRLA, EOMI x 2, No injected conjunctiva, no nystagmus. EARS: Hearing grossly intact. Ear canals and tympanic membranes are within normal limits. MOUTH: Oropharynx within normal limits. NECK: Supple, trachea is midline, no adenopathy, no JVD, no carotid bruit, no c- spine tenderness, neck with full ROM. CHEST: Symmetric, no tenderness at palpation LUNGS: Clear to auscultation bilaterally. No wheezing or crackles. CVS: Regular rate and rhythm, S1 and S2 present, no murmurs or gallops appreciated. ABDOMEN: Soft, non-tender. No signs of distention. No rebound no guarding, and no masses palpated. Bowel sounds are normal. EXTREMITIES: FROM in all major joints, no edema, no cyanosis or clubbing. NEURO: Alert and oriented x 3. No acute neurological deficits. Speech is normal and follows commands. SKIN: Dry and warm Triage Information Reviewed: Yes Vital Signs On Initial Exam: Initial Vitals Temp Pulse Resp BP Pulse Ox 97.8 F 91 20 173/78 98 12/30/16 10:46 12/30/16 10:46 12/30/16 10:46 12/30/16 10:46 12/30/16 10:46 Vital Signs Reviewed: Yes Diagnostics - Vital Signs Vital Signs Temp Pulse Resp BP Pulse Ox 12/30/16 12:04 96 12/30/16 11:46 62 98 12/30/16 11:43 122/75 12/30/16 10:46 97.8 F 91 20 173/78 98 - Laboratory Lab Results: Lab Results 12/30/16 12/30/16 12/30/16 Range/Units 12:45 12:45 12:45 WBC 6.6 (3.5-10.8) 10^3/ul RBC 3.97 L (4.0-5.4) 10^6/ul Hgb 11.8 L (12.0-16.0) g/dl Hct 35 (35-47) % MCV 88 (80-97) fL MCH 30 (27-31) pg MCHC 34 (31-36) g/dl RDW 14 (10.5-15) % Plt Count 181 (150-450) 10^3/ul MPV 8 (7.4-10.4) um3 Neut % (Auto) 70.4 (38-83) % Lymph % (Auto) 21.9 L (25-47) % [place] % (Auto) 5.2 (1-9) % Eos % (Auto) 1.7 (0-6) % Baso % (Auto) 0.8 (0-2) % Absolute Neuts (auto) 4.7 (1.5-7.7) 10^3/ul Absolute Lymphs (auto) 1.4 (1.0-4.8) 10^3/ul Absolute Monos (auto) 0.3 (0-0.8) 10^3/ul Absolute Eos (auto) 0.1 (0-0.6) 10^3/ul Absolute Basos (auto) 0.1 (0-0.2) 10^3/ul Absolute Nucleated RBC 0 10^3/ul Nucleated RBC % 0 D-Dimer, Quantitative 771 H (Less Than 230) ng/mL Sodium 136 (133-145) mmol/L Potassium 4.3 (3.5-5.0) mmol/L Chloride 106 (101-111) mmol/L Carbon Dioxide 26 (22-32) mmol/L Anion Gap 4 (2-11) mmol/L BUN 16 (6-24) mg/dL Creatinine 0.62 (0.51-0.95) mg/dL Est GFR ( Amer) 127.1 (>60) Est GFR (Non-Af Amer) 98.9 (>60) BUN/Creatinine Ratio 25.8 H (8-20) Glucose 87 (70-100) mg/dL Lactic Acid (0.5-2.0) mmol/L Calcium 8.9 (8.6-10.3) mg/dL Magnesium 1.9 (1.9-2.7) mg/dL Total Bilirubin 0.40 (0.2-1.0) mg/dL AST 22 (13-39) U/L ALT 17 (7-52) U/L Alkaline Phosphatase 108 H (34-104) U/L Total Creatine Kinase 50 (10-223) U/L CK-MB (CK-2) 1.1 (0.6-6.3) ng/mL Myoglobin 15.4 (14.3-65.8) ng/mL Troponin I 0.00 (<0.04) ng/mL B-Natriuretic Peptide ( - 100) pg/mL Total Protein 6.8 (6.4-8.9) g/dL Albumin 3.8 (3.2-5.2) g/dL Globulin 3.0 (2-4) g/dL Albumin/Globulin Ratio 1.3 (1-3) TSH 1.20 (0.34-5.60) mcIU/mL Thyroxine (T4) 9.98 (6.09-12.23) mcg/mL 12/30/16 12/30/16 12/30/16 Range/Units 12:45 12:45 15:26 WBC (3.5-10.8) 10^3/ul RBC (4.0-5.4) 10^6/ul Hgb (12.0-16.0) g/dl Hct (35-47) % MCV (80-97) fL MCH (27-31) pg MCHC (31-36) g/dl RDW (10.5-15) % Plt Count (150-450) 10^3/ul MPV (7.4-10.4) um3 Neut % (Auto) (38-83) % Lymph % (Auto) (25-47) % [place] % (Auto) (1-9) % Eos % (Auto) (0-6) % Baso % (Auto) (0-2) % Absolute Neuts (auto) (1.5-7.7) 10^3/ul Absolute Lymphs (auto) (1.0-4.8) 10^3/ul Absolute Monos (auto) (0-0.8) 10^3/ul Absolute Eos (auto) (0-0.6) 10^3/ul Absolute Basos (auto) (0-0.2) 10^3/ul Absolute Nucleated RBC 10^3/ul Nucleated RBC % D-Dimer, Quantitative (Less Than 230) ng/mL Sodium (133-145) mmol/L Potassium (3.5-5.0) mmol/L Chloride (101-111) mmol/L Carbon Dioxide (22-32) mmol/L Anion Gap (2-11) mmol/L BUN (6-24) mg/dL Creatinine (0.51-0.95) mg/dL Est GFR ( Amer) (>60) Est GFR (Non-Af Amer) (>60) BUN/Creatinine Ratio (8-20) Glucose (70-100) mg/dL Lactic Acid 0.8 (0.5-2.0) mmol/L Calcium (8.6-10.3) mg/dL Magnesium (1.9-2.7) mg/dL Total Bilirubin (0.2-1.0) mg/dL AST (13-39) U/L ALT (7-52) U/L Alkaline Phosphatase (34-104) U/L Total Creatine Kinase (10-223) U/L CK-MB (CK-2) (0.6-6.3) ng/mL Myoglobin (14.3-65.8) ng/mL Troponin I 0.01 (<0.04) ng/mL B-Natriuretic Peptide 32 ( - 100) pg/mL Total Protein (6.4-8.9) g/dL Albumin (3.2-5.2) g/dL Globulin (2-4) g/dL Albumin/Globulin Ratio (1-3) TSH (0.34-5.60) mcIU/mL Thyroxine (T4) (6.09-12.23) mcg/mL Result Diagrams: 12/30/16 12:45 12/30/16 12:45 Lab Statement: Any lab studies that have been ordered have been reviewed, and results considered in the medical decision making process. - Radiology CXR Xray Interpretation: No Acute Changes Radiology Interpretation Completed By: Radiologist - IMPRESSION: CARDIAC PACEMAKER. NO ACTIVE DISEASE. - EKG 1050 Cardiac Rate: NL - 74 bpm EKG Rhythm: Sinus Rhythm ST Segment: Normal Ectopy: None EKG Interpretation: No ST elevations - Additional Comments Diagnostic Additional Comments: LUNG SCAN VQ-NM READ BY RADIOLOGIST - IMPRESSION: LOW PROBABILITY FOR ACUTE PULMONARY EMBOLUS. Chest Pain Course/Dx - Course Assessment/Plan: Test results WNL except d-dimer of 771. CXR reveals no active disease. Lung scan VQ-NM reveals low probability for acute pulmonary embolus. I decided to do Chest CT since pt s/p surgery and c/o SOB to r/o PE. Chest CT was negative. Two troponins were negative. I have low suspicion for acute coronary syndrome. Pt was given Toradol and symptoms improved. Pt will be d/c with f/u from PCP for follow-up and management. Pt was instructed to return if she experiences CP, SOB, nausea, vomiting, or diaphoresis. I discussed all the findings and test results with the patient. Patient was instructed to return to the emergency room immediately if any of the symptoms return or worsens. Plan of care was discussed with the patient and understands and agrees. All questions were answered at patient satisfaction. There were no further complaints or concerns. Lung exam before discharge: CTA B/L. Good air exchange. No wheezing or crackles heard. CVS: S1 and S2 present. No murmurs appreciated. Patient is alert and oriented x 3. Patient is hemodynamically stable. Patient will be discharged home with follow up PCP in the next 2-3 days - Chest Pain Differential Diagnosis/HQI/PQRI: ACS, Angina, Chest Wall, GI Disease, Lower Respiratory Infection - Diagnoses Provider Diagnoses: Chest pain - Provider Notifications Discussed Care Of Patient With: Dr. Ya (radiologist) at 1444. Dr. Ya agrees for pt to get a lung scan - VQ. Discharge - Discharge Plan Condition: Stable Disposition: HOME Patient Education Materials: Chest Pain (ED) Referrals: Traci Mejía MD [Primary Care Provider] - Additional Instructions: Follow up with primary care physician in 2-3 days. Return to ED for new or worsening symptoms. The documentation as recorded by the Jomar eisenberg Anna accurately reflects the service I personally performed and the decisions made by me, Seven Thornton MD.
== END | disposition home or self-care (01) ==
LOC: ED 10:44
DX: R07.9 Chest pain, unspecified (principal)
CPT/HCPCS: 36415; 71010; 78582; 80053; 82550; 82553; 83605; 83735; 83874; 83880; 84436; 84443; 84484; 85025; 85379; 93005; 96374; 99283; A9270-GY; A9540; A9558; J1885

== ENCOUNTER 2017-01-08 07:03 | Observation (INO) | payer OTHER ==
[2017-01-08] MEDS ORDERED: Diazepam TAB(*) 5 MG ONE (07:45)
[2017-01-08] MEDS ORDERED: ceFAZolin 2 GM PREMIX(*) 2 GM/50 ML BAG IVPB ONE (08:00)
[2017-01-08] MEDS ORDERED: fentaNYL* 50 MCG/ML 2 ML VIAL (100 MCG VIAL) ONE (08:23)
[2017-01-08] MEDS ORDERED: Midazolam* 1 MG/ML 5 ML VIAL (5 MG) ONE (08:23)
[2017-01-08] MEDS ORDERED: Lidocaine 1% INJ* 10 MG/ML 30 ML SDV ONE (08:23)
[2017-01-08] MEDS ORDERED: Acetaminophen TAB* 325 MG PO PRN (10:33)
[2017-01-08 10:44] LABS: Erythrocyte Sed Rate 32 mm/Hr (0-30)
[2017-01-08] MEDS: oxyCODONE/Acetamin 5/325 MG* TAB PO PRN ×2 (11:54→21:55)
[2017-01-08] MEDS: Cephalexin CAP* 500 MG PO SCH ×3 (11:54→21:55)
[2017-01-08 14:47] LABS: Hematocrit 35 % (35-47); Hemoglobin 11.5 g/dl (12.0-16.0); Mean Corpuscular HGB Conc 33 g/dl (31-36); Mean Corpuscular Hemoglobin 29 pg (27-31); Mean Corpuscular Volume 89 fL (80-97); Mean Platelet Volume 9 um3 (7.4-10.4); Red Blood Count 3.92 10^6/ul (4.0-5.4); Red Cell Distribution Width 14 % (10.5-15); White Blood Count 6.6 10^3/ul (3.5-10.8)
[2017-01-09 08:09] VITALS: BP 115/63
[2017-01-09] MEDS: Cephalexin CAP* 500 MG PO SCH (08:13)
--- NOTE | 2017-01-09 08:16 | RAD ---
INDICATION: Post pacemaker device placement. COMPARISON: January 03, 2017 TECHNIQUE: Dual energy PA and routine lateral views of the chest were obtained. REPORT: Mild prominence of interstitial markings and patchy mid and upper lung zone rarefaction. Minimal LEFT basilar atelectasis. Negative for pleural effusion or pneumothorax. RIGHT atrial and RIGHT ventricular level pacemaker leads. Negative for cardiomegaly or prominence of the central pulmonary vasculature. Unremarkable mediastinal contours. LEFT chest wall loop recorder. IMPRESSION: Unchanged position of the RIGHT atrial and RIGHT ventricular pacemaker leads. Negative for pneumothorax or pulmonary edema.
[2017-01-09] MEDS ORDERED: Metoprolol Succinate XL TAB* 25 MG PO SCH (09:00)
[2017-01-09] MEDS ORDERED: Losartan TAB* 25 MG PO SCH (09:00)
--- NOTE | 2017-01-10 02:37 | DS ---
CC: Dr. Traci Mejía * DISCHARGE SUMMARY: DATE OF ADMISSION: DATE OF DISCHARGE: 01/09/17 HISTORY OF PRESENT ILLNESS AND HOSPITAL COURSE: Ana Osullivan is a 56-year-old woman, who underwent dual-chamber pacemaker implantation in December of this year () and in the hospital, there were no complications. On discharge, the patient noted some diaphragmatic pacing and positional chest pain, initial followup in our office showed excellent incision healing, but these symptoms occurred after her incision check and pacemaker interrogation after her symptoms showed non-capture of the ventricular lead. Chest x-rays showed micro-lead dislodgement and lung barnard were clear. The patient was admitted for ventricular lead revision. Because she subsequently been in the emergency room for chest pain symptoms, sed rate and focused echo were checked. She did have a very small pericardial effusion, but no evidence of filling compromise. The patient's sed rate was mildly elevated at 32. C-reactive protein normally elevated at 4.07. The patient underwent lead revision, operative note documented separately, and watched overnight. Today, she says she has had nominal pain and is feeling well , walking without any problems. Her chest x-ray showed no evidence of pneumothorax, pleural effusions, or other lung field abnormalities, and her lead shows good position. Pacemaker interrogation today confirms she has a Medtronic MRI-compatible system programmed in dual-chamber mode at the low rate of 60 beats a minute. Her atrial sensing is 3.6 millivolts with an atrial lead impedance of 380 ohms and atrial pacing threshold of 0.75 volts at 0.4 milliseconds. Her ventricular lead senses R waves at 14.4 millivolts, ventricular lead impedance of 551 ohms, and a ventricular pacing threshold of 0.75 volts at 0.4 milliseconds. SUMMARY: In summary, Ana Osullivan had a micro-lead dislodgement and mild pericarditis and underwent ventricular lead revision with good outcome. DISCHARGE MEDICATIONS: She will be discharged home with the addition of Keflex 500 mg four times a day as well as her outpatient medications which included: 1. Levothyroxine 25 mcg every other day alternating with 50 mcg every other day. 2. Calcium and vitamin D. 3. Vitamin D3. 4. Flaxseed. 5. Cozaar 50 mg b.i.d. 6. Multi-Will. 7. Metoprolol 25 mg a day. DISCHARGE INSTRUCTIONS: She will follow up in our office in 1 week for a wound check and 1 month for pacemaker interrogation. Please see details of her past medical history on her discharge summary of 12/20/16. [id number]/[facility] #: [id number] MTDMarlys
[2017-01-10] MEDS ORDERED: Levothyroxine TAB* 50 MCG TAB PO SCH (06:00)
--- NOTE | 2017-01-15 14:06 | DS ---
CC: Dr. Traci Mejía * DISCHARGE SUMMARY: DATE OF ADMISSION: 01/08/17 DATE OF DISCHARGE: 01/09/17 REASON FOR ADMISSION: Ventricular lead replacement. HISTORY OF PRESENT ILLNESS: Ana Osullivan is a 56-year-old woman who was admitted a week before for dual-chamber pacemaker implantation with a history of 8 second complete heart block. The procedure was uncomplicated and she was discharged to home. At home, she felt some mild pounding sensation that sounded like diaphragmatic pacing and she also developed symptoms that sounds like pericarditis, which took her to the emergency department with positional chest pain. On the morning of the admission, she said she had been given nonsteroidals and this pain felt much better. Interrogations that had occurred in our office showed the ventricular lead was unable to pace. Followup chest x- ray was suggestive of a microlead dislodgement. The leads showed mild shift, but really continued to look well positioned. The patient was admitted for ventricular lead revision for microlead dislodgement. She was taken to the operating room on 01/08/17. See operative report, which is dictated separately for full details that the lead was repositioned successfully. The patient was given antibiotics prophylactically. Overnight, she felt well with nominal pain. On exam, the patient is 5 feet 6 inches, weighs 149 pounds with a BMI of 24. She was afebrile throughout the procedure. She was predominantly in an atrial paced rhythm 60 beats a minute and chemehuevi QRS and blood pressure was 115/63. Chest x-ray on the morning of discharge showed good lead placement and pacemaker interrogation on the day of discharge confirmed good threshold. She has a Medtronic MRI compatible device A2DR01, P-wave sensing 3.6 millivolts with an atrial lead impedance of 380 ohms and an atrial pacing threshold of 0.75 volts at 0.4 milliseconds. The repositioned ventricular lead showed R- waves of 14.4 millivolts and ventricular lead impedance of 551 ohms and a ventricular pacing threshold of 0.75 volts at 0.4 milliseconds. Overnight, the patient has had 1 second of mode switch and showed excellent function. MEDICATIONS: The patient was discharged on: 1. Keflex 500 mg 4 times a day. 2. Multi-Will. 3. Losartan 50 mg a day. 4. Flaxseed oil. 5. Vitamin D3 5000 units every day. 6. Levothyroxine 50 mcg every other day. 7. Calcium carbonate with vitamin D 1 tablet daily. 8. Metoprolol XL 25 mg daily. She was provided with information about wound care. She was discharged with a sling as the shoulder immobilizer had been painful for her and she will undergo wound check in 1 week's time. See history of present illness from 01/08/17 for additional details of her full past medical history. [id number]/[facility] #: [id number] MARCUS
--- NOTE | 2017-01-26 16:58 | OP ---
CC: Traci Mejía MD * DATE OF OPERATION: 01/08/17 - ROOM #451 DATE OF : 56 SURGEON: Lali Lara MD ANESTHESIA: MAC. PRE-OP DIAGNOSIS: Micro lead dislodgment. POST-OP DIAGNOSIS: Micro lead dislodgment. OPERATIVE PROCEDURE: Ventricular lead revision. ESTIMATED BLOOD LOSS: Less than 2 cc. COMPLICATIONS: None. INDICATIONS: The patient was in the postprandial state. The indications, risks , and benefits were explained to the patient in the presence of her . She was amenable to proceeding. FINDINGS: The device is a OptuLink MRI compatible system, model A2DR01. Atrial lead sensing was 3.6 millivolts with an atrial lead impedance of 380 ohms and an atrial pacing threshold of 0.75 volts at 0.4 milliseconds. The ventricular lead impedance was 551 ohms with an R-wave sensed at 14.4 millivolts and a ventricular pacing threshold of 0.75 volts at 0.4 milliseconds. There were no complications and the patient was hemodynamically stable throughout the procedure and in recovery. DESCRIPTION OF PROCEDURE: The patient received a total of 25 mcg of fentanyl and 4 mg of Versed for sedation. She received 25 cc of 1% lidocaine for local anesthesia. The existing pacemaker site and the left subclavian fossa was prepped and draped in the usual sterile fashion. Following this, a time-out procedure was called. Using scissors, the existing sutures and the recent incision were snipped and using Metzenbaum scissors the incision was spread open, suture material was removed using forceps. The existing device was then explanted. The atrial lead was left in as there were no issues with this, the ventricular lead was removed and a stylet inserted. This was an active fixation lead, the coil was retracted loosening the lead and using fluoroscopic guidance, it was attached to the ventricle with good pacing and sensing thresholds; however, the position did not look good with an unusual angle, therefore the lead was retracted again , pulled back across the tricuspid valve, re-inserted the tricuspid valve, all using fluoroscopic guidance, guided into the apex and actively fixed in place. Pacing and sensing thresholds were good/excellent and the lead was reattached to the pocket using 0 silk suture, then attached to the device. The pocket was copiously irrigated. Additional suture material was found and removed. The device was placed in the pocket and the incision was closed with 2 layers of resorbable suture, 2-0 followed by 4-0 followed by Steri-Strips and an external dressing. [id number]/[facility] #: [id number] MARCUS
== END 2017-01-09 11:20 | disposition home or self-care (01) ==
LOC: CHICATH 07:03 → MEDTELE 11:09
PROVIDERS: ADMIT Specialist; ATTEND Specialist
DX: T82.120A Displacement of cardiac electrode, initial encounter (principal); Y83.8 Other surgical procedures as the cause of abnormal reaction of the patient, or of later complication, without mention of misadventure at the time of the procedure; Z79.899 Other long term (current) drug therapy; I10 Essential (primary) hypertension; E78.5 Hyperlipidemia, unspecified
CPT/HCPCS: 33215; 36415; 71020; 85025; 85652; 86140; 93005; 93306; A9270-GY; G0378; J0690; J2001; J2250; J3010